=== PATIENT | male | born 1995 | race African-American/Black ===

== ENCOUNTER 2018-10-13 17:42 | Emergency (ER) | payer OTHER ==
[~2018-10-13] VITALS: Ht 193 cm; Wt 79.8 kg
[~2018-10-13 17:42] MED LIST: ONDA4TAB10 SL
[2018-10-13 17:55] VITALS: BP 120/69
[2018-10-13] MEDS ORDERED: NAPROXEN 500 MG TABLET PO STA (18:18)
[2018-10-13] MEDS ORDERED: CYCLOBENZAPRINE 10 MG TABLET. PO ONE (18:30)
[2018-10-13] MEDS ORDERED: HYDROcodone/APAP 5/325MG 1 TAB TABLET PO ONE (18:30)
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
[2018-10-13] MEDS ORDERED: CYCL10TA2 PO (19:18)
[2018-10-13] MEDS ORDERED: DICL50TA4 PO (19:18)
== END 2018-10-13 19:23 | disposition home or self-care (01) ==
LOC: ER 17:42
DX: S13.8XXA Sprain of joints and ligaments of other parts of neck, initial encounter (principal); S06.0X1A Concussion with loss of consciousness of 30 minutes or less, initial encounter; S00.03XA Contusion of scalp, initial encounter; I10 Essential (primary) hypertension; F17.200 Nicotine dependence, unspecified, uncomplicated; V43.52XA Car driver injured in collision with other type car in traffic accident, initial encounter; Y93.89 Activity, other specified; Y92.481 Parking lot as the place of occurrence of the external cause; Y99.8 Other external cause status; Z88.0 Allergy status to penicillin
CPT/HCPCS: 70450; 72125; 99284